=== PATIENT | male | born 1960 | race Caucasian/White ===

== ENCOUNTER 2017-04-08 09:52 | Day surgery (SDC) | payer BC ==
[2017-04-07 11:21] VITALS: BMI 29.1
[~2017-04-08 09:52] MED LIST: FLU VACC QS2017-18 36 mo. & older 0.5 ML SYRINGE IM ONE
[2017-04-08] MEDS ORDERED: Lidocaine 1% PF 5 ML VIAL ONE (10:48)
[2017-04-08 12:11] VITALS: BP 115/84; TEMP 98
--- NOTE | 2017-04-08 14:00 | ULT ---
PROCEDURE: 1. Ultrasound fine needle aspiration to a 1.0 cm rounded nodule inferior left lobe of the thyroid. This nodule shows some internal calcifications and was given a TIRADS 5 designation. 2. Ultrasound guided fine needle aspiration to a 1.5 cm heterogeneous nodule in the mid right lobe. This was given a TIRADS 4 on prior exam. INDICATION: Nodules in both lobes of the thyroid previously identified on ultrasound from [facility]. That exam is reviewed. The left lobe nodule is a TIRADS 5 and the right lobe nodule is a TIRADS 4 designa tion. FNA requested for both of these nodules. FINDINGS: 1. The rounded nodule in the inferior left lobe of the thyroid was sampled with FNA x4 using a 25 g auge needle. Ultrasound confirmed presence of the tip of the needle within the nodule with each samp le. Each sample was given to Dr. Pittman at bedside for preparation. 2. The nodule in the mid right lobe was also sampled with FNA x4 using a 25 gauge needle in a simil ar fashion. PROCEDURE NOTE: Neck was prepped and draped in a sterile manner. Local anesthesia was administered with lidocaine un olayinka ultrasound guidance. Left nodule was sampled first with FNA under ultrasound guidance. This was followed by FNA of the right lobe nodule with the same technique. There were no problems or complications. POS: [facility]
== END 2017-04-08 11:40 | disposition home or self-care (01) ==
LOC: ULT 09:52
PROVIDERS: ATTEND Otolaryngology Plastic Surgery within the Head & Neck
PROC: BG44ZZZ Ultrasonography of Thyroid Gland (ICD-10-PCS; principal; 2017-04-08)
PROC: 07D73ZX Extraction of Thorax Lymphatic, Percutaneous Approach, Diagnostic (ICD-10-PCS; principal; 2017-04-08)
DX: E04.2 Nontoxic multinodular goiter (principal); I10 Essential (primary) hypertension; E78.00 Pure hypercholesterolemia, unspecified; Z79.82 Long term (current) use of aspirin; Z79.899 Other long term (current) drug therapy; Z88.8 Allergy status to other drugs, medicaments and biological substances; Z98.1 Arthrodesis status; Z90.49 Acquired absence of other specified parts of digestive tract; Z98.890 Other specified postprocedural states; Z87.74 Personal history of (corrected) congenital malformations of heart and circulatory system
CPT/HCPCS: 10022; 76942; 88173; 88305; J2001

== ENCOUNTER 2017-09-29 13:41 | Outpatient (CLI) | payer BC | END 2017-09-29 13:42 | disposition home or self-care (01) | LOC: BICULT 13:41 | PROVIDERS: ATTEND Otolaryngology Plastic Surgery within the Head & Neck | DX: E04.1 Nontoxic single thyroid nodule (principal); E04.2 Nontoxic multinodular goiter | CPT/HCPCS: 76536 ==

== ENCOUNTER 2021-10-30 08:04 | Outpatient (CLI) | payer BC | END 2021-10-30 08:05 | disposition home or self-care (01) | LOC: CT 08:04 | PROVIDERS: ATTEND Thoracic Surgery (Cardiothoracic Vascular Surgery) | DX: I25.118 Atherosclerotic heart disease of native coronary artery with other forms of angina pectoris (principal) | CPT/HCPCS: 71250 ==